=== PATIENT | male | born 1975 | race Two or more races ===

== ENCOUNTER 2020-10-01 08:15 | Outpatient (CLI) | payer OTHER | END 2020-10-01 08:26 | disposition home or self-care (01) | LOC: LAB 08:15 | PROVIDERS: ATTEND Pediatrics Neonatal-Perinatal Medicine | DX: Z11.3 Encounter for screening for infections with a predominantly sexual mode of transmission (principal); Z11.4 Encounter for screening for human immunodeficiency virus [HIV] ==

== ENCOUNTER 2025-09-06 14:15 | Emergency (ER) | payer OTHER ==
[~2025-09-06] VITALS: Ht 167.6 cm; Wt 72.6 kg
[2025-09-06] MEDS ORDERED: PROTONIX40 M1 PO (15:33)
[2025-09-06] MEDS ORDERED: ORPHENADRINE CITRATE 30 MG/ML AMPUL IM ONE (16:15)
[2025-09-06] MEDS ORDERED: KETOROLAC TROMETHAMINE 60 MG VIAL IM ONE ×2 (16:15→16:53)
[2025-09-06] MEDS ORDERED: ORPHENADRINE CITRATE 30 MG/ML AMPUL ONE (16:53)
[2025-09-06] MEDS ORDERED: NORFLEX100MG PO (19:22)
== END 2025-09-06 19:33 | disposition home or self-care (01) ==
LOC: ER 14:16
DX: S39.82XA Other specified injuries of lower back, initial encounter (principal); V49.88XA Car occupant (driver) (passenger) injured in other specified transport accidents, initial encounter; Y93.89 Activity, other specified; Y92.89 Other specified places as the place of occurrence of the external cause; Y99.8 Other external cause status; M62.830 Muscle spasm of back

== ENCOUNTER 2025-09-08 19:16 | Emergency (ER) | payer OTHER ==
[~2025-09-08] VITALS: Ht 167.6 cm; Wt 73.5 kg
[~2025-09-08 19:16] MED LIST: NORFLEX100MG PO; PROTONIX40 M1 PO
[2025-09-08 20:25] VITALS: BP 125/79; O2SAT 98
[2025-09-08] MEDS ORDERED: FAMOTIDINE/PF 20 MG/2 ML VIAL IV ONE (21:15)
[2025-09-08] MEDS ORDERED: ONDANSETRON HCL 2 MG/ML VIAL IV ONE (21:15)
[2025-09-08] MEDS ORDERED: 0.9 % SODIUM CHLORIDE 1,000 ML IV ONE (21:15)
[2025-09-08] MEDS ORDERED: ACETAMINOPHEN 325 MG TABLET PO ONE ×2 (21:15→21:17)
[2025-09-08] MEDS ORDERED: FAMOTIDINE/PF 20 MG/2 ML VIAL ONE (21:17)
[2025-09-08] MEDS ORDERED: ONDANSETRON HCL 2 MG/ML VIAL ONE (21:17)
[2025-09-08 22:03] LABS: BASO % 0.4 % (0.1-1.2); EOS # 0.06 (0.04-0.54); EOS % 0.4 % (0.7-7.0); LYMPH # 0.87 (1.18-3.74); LYMPH % 6.5 % (19.3-53.1); MEAN PLATELET VOLUME 10.90 fl (9.4-12.4); MONO # 0.55 (0.24-0.82); MONO % 4.1 % (4.7-12.5); NEUT # 11.77 (1.56-6.13); NEUT % 88.2 % (34.0-71.1); RED CELL DISTRIBUTION WIDTH 13.7 % (11.6-14.4)
[2025-09-08 22:14] LABS: COVID-19 AG NEGATIVE (NEGATIVE)
[2025-09-08 22:31] LABS: ALT/SGPT 35.0 U/L (12-78); AST/SGOT 36.0 U/L (15-37); BILIRUBIN TOTAL 1.13 mg/dL (0.3-1.2); BUN CREA RATIO 12.0 (7.0-25.0); CREATININE SERUM 0.89 mg/dL (0.70-1.30); GFR 90.85; GLOBULINA 3.9 G/DL (2.4-3.5); GLUCOSE FASTING 105.0 mg/dL (65-100); OSMOLALITY SERUM 281.0 MOSM/KG (275-295)
[2025-09-08] MEDS ORDERED: PEPCID AC20 MG PO (23:07)
[2025-09-08] MEDS ORDERED: ZOFRAN8 MG PO (23:07)
== END 2025-09-08 23:30 | disposition home or self-care (01) ==
LOC: ER 19:16
PROVIDERS: General Practice
DX: K52.89 Other specified noninfective gastroenteritis and colitis (principal); E87.1 Hypo-osmolality and hyponatremia; G47.33 Obstructive sleep apnea (adult) (pediatric); K44.9 Diaphragmatic hernia without obstruction or gangrene; Z20.822 Contact with and (suspected) exposure to COVID-19